=== PATIENT | female | born 1975 | race Caucasian/White ===

== ENCOUNTER 2018-12-27 15:43 | Emergency (ER) | payer MEDICAID ==
[~2018-12-27] VITALS: Ht 170.2 cm; Wt 81.8 kg
[2018-12-27 15:47] VITALS: BP 132/76; PULSE 96; TEMP 97.3
[2018-12-27 16:03] LABS: COLLECTION METHOD CLEAN CATCH
[2018-12-27] MEDS ORDERED: WELLBUTRIN 100100 MG PO (16:10)
[2018-12-27] MEDS ORDERED: SYNTHROID0.1 MG/TAB PO (16:10)
[2018-12-27 16:11] LABS: MUCOUS Present /lpf; PH 6 (5-8); SQUAMOUS EPITHELIAL 20-50 /hpf; URINE APPEARANCE Cloudy; URINE BACTERIA Moderate /hpf; URINE BILIRUBIN Negative (NEGATIVE); URINE BLOOD Negative (NEGATIVE); URINE COLOR Yellow; URINE GLUCOSE Negative (NEGATIVE); URINE KETONE Negative (NEGATIVE); URINE LEUKOCYTE ESTERASE 3+ (NEGATIVE); URINE NITRATE Positive (NEGATIVE); URINE PROTEIN(semi-quant) Negative (NEGATIVE); URINE UROBILINOGEN Negative (NEGATIVE)
[2018-12-27] MEDS ORDERED: DESYREL 100MG100 MG PO (16:11)
[2018-12-27] MEDS ORDERED: LEXAPRO20 MG PO (16:11)
[2018-12-27] MEDS ORDERED: AMBIEN 5MG TABLE5 MG PO (16:11)
[2018-12-27] MEDS ORDERED: CEFTIN500 MG PO (16:20)
[2018-12-27] MEDS ORDERED: PYRIDIUM200 M1 PO (16:20)
== END 2018-12-27 16:28 | disposition home or self-care (01) ==
LOC: COL.ER 15:43
PROVIDERS: Emergency Medicine
DX: N39.0 Urinary tract infection, site not specified (principal)